=== PATIENT | female | born 1995 | race Caucasian/White ===

== ENCOUNTER 2016-12-05 12:03 | Emergency (ER) | payer SELFPAY ==
[~2016-12-05] VITALS: Ht 160 cm; Wt 56.8 kg
[2016-12-05 12:05] VITALS: BP 121/85; TEMP 98.4
[2016-12-05] MEDS ORDERED: AMOXICILLIN 50500 MG PO (12:48)
[2016-12-05 13:01] VITALS: PULSE 86
== END 2016-12-05 13:01 | disposition home or self-care (01) ==
LOC: COL.ER 12:03
DX: J02.0 Streptococcal pharyngitis (principal)